=== PATIENT | female | born 2000 | race Caucasian/White ===

== ENCOUNTER 2022-09-15 05:02 | Inpatient (IN) ==
[2022-09-15] MEDS ORDERED: ONDANSETRON 4 MG/2 ML VIAL IV PRN (05:09)
[2022-09-15] MEDS ORDERED: OXYTOCIN/LR 20 UNIT/1,000 ML BAG IV ONE ×2 (05:09→13:54)
[2022-09-15] MEDS ORDERED: CARBOPROST TROMETHAMINE 250 MCG/ML AMP IM PRN (05:09)
[2022-09-15] MEDS ORDERED: METHYLERGONOVINE 0.2 MG/1 ML AMP IM PRN (05:09)
[2022-09-15] MEDS ORDERED: TRANEXAMIC ACID 1,000 MG in SODIUM CHLORIDE 0.9% 100 ML IV PRN (05:09)
[2022-09-15] MEDS ORDERED: miSOPROStoL 200 MCG TABLET RECTAL PRN (05:09)
[2022-09-15] MEDS ORDERED: BUTORPHANOL 2 MG/ML VIAL IV PRN (05:09)
[2022-09-15] MEDS ORDERED: MEPERIDINE 25 MG/1 ML VIAL IV PRN (05:23)
[2022-09-15] MEDS ORDERED: LACTATED RINGERS 1,000 ML IV SCH (05:30)
[2022-09-15 05:33] LABS: Basophils # 0.1 10*3/uL (0.0-0.2); Basophils % 0.6 % (0.0-0.8); Eosinophils # 0.2 10*3/uL (0.0-0.87); Eosinophils % 1.7 % (0.00-10.9); Hematocrit 39.9 VOL% (35.7-47.0); Hemoglobin 13.4 GM/DL (12.0-16.0); Immature Granulocytes % 0.6 %; Immature Granulocytes Absolute 0.05 #; Mean Corpuscular HGB Conc 33.6 GM/DL (32-36); Mean Corpuscular Volume 92.4 FL (87-102); Mean Platelet Volume 11.8 FL (9.6-12.0); Monocytes # 0.6 10*3/uL (0.11-0.8); Monocytes % 6.6 % (1.7-12.7); Neutrophils % 57.5 % (38.7-73.9); Platelet Count 176 T/CUMM (130-400); Red Blood Count 4.32 MC/CUMM (3.8-5.5); Red Cell Distribution Width 12.9 % (9.3-17.3)
[2022-09-15 05:54] LABS: Albumin 3.3 G/DL (3.4-5.0); Bilirubin,Total 0.5 MG/DL (0.20-1.00); Calcium 8.9 MG/DL (8.5-10.1); Osmolality,Calculated 270.8 MOS/KG (273-304); Potassium 3.7 MMOL/L (3.5-5.1); Total Protein 7.4 G/DL (6.4-8.2)
[2022-09-15] MEDS ORDERED: OXYTOCIN/LR 20 UNIT/1,000 ML BAG IV SCH (06:00)
[2022-09-15] MEDS ORDERED: CITRIC ACID/SODIUM CITRATE 30 ML UDCUP PO ONE (08:36)
[2022-09-15] MEDS ORDERED: hydrOXYzine HCL 25 MG/1 ML VIAL IM PRN (08:36)
[2022-09-15] MEDS ORDERED: FAMOTIDINE 20 MG/2 ML VIAL IV ONE (08:36)
[2022-09-15] MEDS ORDERED: NALOXONE 0.4 MG/ML VIAL IV PRN (08:36)
[2022-09-15] MEDS ORDERED: PROMETHAZINE 25 MG/1 ML VIAL IM ONE (08:36)
[2022-09-15] MEDS ORDERED: ePHEDrine 50 MG/ML VIAL IV PRN (08:36)
[2022-09-15] MEDS ORDERED: LACTATED RINGERS 1,000 ML IV ONE (08:36)
[2022-09-15] MEDS ORDERED: diphenhydrAMINE 50 MG/1 ML VIAL IV PRN ×2 (08:36)
[2022-09-15] MEDS ORDERED: fentaNYL 2 MCG/ROPIV 0.2% EPID 100 ML EPIDURAL SCH (09:00)
[2022-09-15 10:45] LABS: Protein,Urine Negative (Negative); RBC,Urine <1 /HPF (0-4); Urine Appearance Clear (Clear); Urine Color Light Yellow (Yellow); Urine Specific Gravity 1.015 (1.001-1.035)
[2022-09-15 10:46] LABS: Bilirubin,Urine Negative (Negative); Blood, Urine Trace mg/dL (Negative); Glucose,Urine (UA) Negative (Negative); Ketones,Urine Negative (Negative); Nitrite,Urine Negative (Negative); Urine Urobilinogen 0.2 eU/dL (<2.0)
[2022-09-15] MEDS ORDERED: TRANEXAMIC ACID 1,000 MG/10 ML VIAL ONE (10:58)
[2022-09-15] MEDS ORDERED: METHYLERGONOVINE 0.2 MG/1 ML AMP ONE (10:58)
[2022-09-15] MEDS ORDERED: CARBOPROST TROMETHAMINE 250 MCG/ML AMP IM ONE (10:58)
[2022-09-15] MEDS ORDERED: SODIUM CHLORIDE 0.9% 0 ML IV ONE (10:58)
[2022-09-15] MEDS ORDERED: miSOPROStoL 200 MCG TABLET ONE (10:58)
[2022-09-15 11:32] LABS: Cord Venous Blood HCO3 22.6 MMOL/L; Cord Venous Blood PCO2 46.3 MMHG
[2022-09-15] MEDS ORDERED: MEASLES/MUMPS/RUBELLA VACCINE 0.5 ML VIAL SUBCUT ONE (13:54)
[2022-09-15] MEDS ORDERED: ACETAMINOPHEN 325 MG TABLET PO PRN (13:54)
[2022-09-15] MEDS ORDERED: RHO(D) IMMUNE GLOBULIN 300 MCG SYRINGE IM ONE (13:54)
[2022-09-15] MEDS ORDERED: WITCH HAZEL PADS 100/JAR TOP PRN (13:54)
[2022-09-15] MEDS ORDERED: HYDROCORTISONE 2.5% RECTAL CREAM 30 GM TUBE TOP PRN (13:54)
[2022-09-15] MEDS ORDERED: BISACODYL 10 MG SUPP RECTAL PRN (13:54)
[2022-09-15] MEDS ORDERED: oxyCODONE/ACETAMINOPHEN 5-325 MG TABLET PO PRN ×2 (13:54)
[2022-09-15] MEDS ORDERED: DIPH/TET/ACEL PERT BOOSTER VACCINE 0.5 ML VIAL IM ONE (13:54)
[2022-09-15] MEDS ORDERED: BENZOCAINE 20%/MENTHOL 0.5% SPRAY 56 GM CAN TOP PRN (13:54)
[2022-09-15] MEDS ORDERED: LANOLIN 50% CREAM 0.3 OZ TUBE TOP PRN (13:54)
[2022-09-15] MEDS: IBUPROFEN 800 MG TABLET PO PRN (18:46)
[2022-09-15] MEDS: DOCUSATE SODIUM 100 MG CAPSULE PO SCH (21:10)
[2022-09-16] MEDS: IBUPROFEN 800 MG TABLET PO PRN ×3 (05:30→20:33)
[2022-09-16 06:16] LABS: Basophils # 0.1 10*3/uL (0.0-0.2); Basophils % 0.6 % (0.0-0.8); Eosinophils # 0.2 10*3/uL (0.0-0.87); Eosinophils % 1.9 % (0.00-10.9); Hematocrit 36.2 VOL% (35.7-47.0); Hemoglobin 12.2 GM/DL (12.0-16.0); Immature Granulocytes % 0.3 %; Immature Granulocytes Absolute 0.03 #; Lymphocytes # 2.4 10*3/uL (1.4-4.0); Mean Corpuscular HGB Conc 33.7 GM/DL (32-36); Mean Corpuscular Volume 92.6 FL (87-102); Mean Platelet Volume 12.1 FL (9.6-12.0); Monocytes # 0.7 10*3/uL (0.11-0.8); Monocytes % 7.1 % (1.7-12.7); Neutrophils % 65.1 % (38.7-73.9); Platelet Count 135 T/CUMM (130-400); Red Blood Count 3.91 MC/CUMM (3.8-5.5); Red Cell Distribution Width 12.9 % (9.3-17.3); White Blood Count 9.5 T/CUMM (4-12)
[2022-09-16] MEDS: DOCUSATE SODIUM 100 MG CAPSULE PO SCH ×2 (09:57→20:33)
[2022-09-17] MEDS: IBUPROFEN 800 MG TABLET PO PRN ×2 (04:31→10:09)
[2022-09-17 07:09] VITALS: BP 115/59
[2022-09-17] MEDS: DOCUSATE SODIUM 100 MG CAPSULE PO SCH (09:20)
[2022-09-17] MEDS ORDERED: DIPH/TET/ACEL PERT BOOSTER VACCINE 0.5 ML VIAL IM ONE (10:15)
== END 2022-09-17 12:35 | disposition home or self-care (01) | DRG 560 ==
LOC: N.LD 05:02 → N.OB 13:42
PROVIDERS: ADMIT Obstetrics & Gynecology; ATTEND Obstetrics & Gynecology